=== PATIENT | male | born 1965 | race Caucasian/White ===

== ENCOUNTER 2018-11-18 19:52 | Emergency (ER) | payer OTHER ==
[~2018-11-18] VITALS: Wt 88.5 kg
[2018-11-18] MEDS ORDERED: CLINDAMYCIN HC300 MG PO (20:49)
== END 2018-11-18 20:47 | disposition home or self-care (01) ==
LOC: ED 19:52
DX: S61.210A Laceration without foreign body of right index finger without damage to nail, initial encounter (principal); W26.8XXA Contact with other sharp object(s), not elsewhere classified, initial encounter; Y93.89 Activity, other specified; Y92.89 Other specified places as the place of occurrence of the external cause; Y99.8 Other external cause status